=== PATIENT | female | born 1965 | race Caucasian/White ===

== ENCOUNTER → 2019-04-13 | Outpatient (CLI) | payer MEDICARE ==
[~2019-04-13] MED LIST: AMLO5 PO; ARIP10 PO; Ativan0.5 MG PO; CITA20 PO; CITALOPRAM PO; L-THEANINE; L-THEANINE25 GM PO; LITH300ER PO; LITHIUM CARB PO; Lithium Carbon450 MG PO; Lithium Carbonate PO; OLANZAPINE20 MG PO; OXYC5 PO; QUET300 PO; RISP2 PO; TRAZ150T57 PO; VENL75ER; Venlafaxine HC100 MG PO
[2019-04-13 17:32] LABS: Source, Urine Clean Catch
[2019-04-13 18:32] LABS: Bilirubin, Urine Neg (Neg); Blood, Urine Neg (Neg); Glucose Qualitative, Urine Neg (Neg); Ketones, Urine Neg (Neg); Leukocyte Esterase, Urine Neg (Neg); Nitrite, Urine Neg (Neg); Protein, Urine Neg (Neg); Urobilinogen, Urine NORM (Normal)
[2019-04-13 18:43] LABS: Appearance, Urine Clear (Clear); Color, Urine Yellow (P-Yellow)
== END | disposition home or self-care (01) ==
LOC: LAB SHORT 17:30 → OLS 17:30 → LAB FUT 04-13 17:00 → EDSTATUS 04-13 17:00
PROVIDERS: Registered Nurse
DX: Z13.220 Encounter for screening for lipoid disorders (principal); Z13.0 Encounter for screening for diseases of the blood and blood-forming organs and certain disorders involving the immune mechanism; I10 Essential (primary) hypertension; R61 Generalized hyperhidrosis; Z79.899 Other long term (current) drug therapy
CPT/HCPCS: 81003

== ENCOUNTER 2020-03-15 06:07 | Day surgery (SDC) | payer MEDICARE ==
[~2020-03-15] VITALS: Ht 172.7 cm; Wt 93.7 kg
[~2020-03-15 06:07] MED LIST changes: +Docusate Sodiu100 M1 PO; +NEBI5 PO; +NORVASC2.5 MG PO; +VITAMIN D310 MC4 PO
--- NOTE | 2020-03-15 06:51 | NUR ---
KNEE HIGH JESS HOSE AND CALF PAS APPLIED TO LLE.
--- NOTE | 2020-03-15 07:18 | NUR ---
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
--- NOTE | 2020-03-15 12:54 | NUR ---
PT ARRIVED TO UNIT FROM PACU AT APROX 1030. DRESSING TO L KNEE C/D/I, POLAR PACK IN PLACE. PT HAS SENSATION T/O LEG AND IS ABLE TO WIGGLE TOES, DENIES PAIN.
--- NOTE | 2020-03-15 17:58 | NUR ---
SHIFT SUMMARY PT POD 0 R TKA. SURGICAL DRESSING C/D/I. PAIN MANAGED WITH PO MEDICTATION. PT WORKED WITH THERAPY AND UP TO CHAIR. TOLERATING REGULAR DIET WITH NO N/V. VOIDING WITH NO DIFFICULTY. PLAN TO WORK WITH THERAPY AND DC HOME TOMORROW.
[2020-03-16 05:00] LABS: BASOPHILS ABSOLUTE AUTO 0.04 K/mm3 (0.00-0.23); BASOPHILS PERCENT AUTO 1 % (0-2); EOSINOPHILS PERCENT AUTO 0 % (0-6); Hematocrit 39.6 % (33.0-51.0); Hemoglobin 12.6 g/dL (11.5-16.0); IMMATURE GRAN ABSOLUTE AUTO 0.01 K/mm3 (0.00-0.10); IMMATURE GRAN PERCENT AUTO 0 % (0-1); LYMPHOCYTES ABSOLUTE AUTO 0.95 K/mm3 (0.84-5.20); LYMPHOCYTES PERCENT AUTO 13 % (21-46); MONOCYTES PERCENT AUTO 8 % (4-13); Mean Corpuscular HGB 30.6 pg (26.0-34.0); Mean Corpuscular HGB Conc 31.8 g/dL (31.5-36.5); Mean Corpuscular Volume 96 fL (80-100); Mean Platelet Volume 9.7 fL (9.1-12.4); NEUTROPHILS ABSOLUTE AUTO 5.81 K/mm3 (1.96-9.15); NEUTROPHILS PERCENT AUTO 79 % (41-73); Platelet Count 233 K/mm3 (150-400); RDW Coefficient Variation 12.7 % (11.7-14.2); RDW Standard Deviation 45.4 fL (35.1-46.3); Red Blood Cell Count 4.12 M/mm3 (3.80-5.20); White Blood Cell Count 7.41 K/mm3 (4.00-11.30)
--- NOTE | 2020-03-16 05:19 | NUR ---
SHIFT SUMMARY: PT POD #1 FOR RT TKA. AQUACEL AND CHUY WRAP C/D/I WITH POLAR PACK IN PLACE. PAIN BEING MANAGED WITH 5MG OXY AND SCHEDULED TORADOL AND TYLENOL. PT MEDICATED ONCE WITH 0.5MG DILAUDID IN BEGINNING OF SHIFT FOR BREAKTHROUGH PAIN. PT MINIMAL ASSIST TO BATHROOM WITH FWW+GB. AMBULATED HALLWAY TWICE THIS SHIFT. VOIDING AND HANG PO. PT DRESSED THIS MORNING AND SITTING IN CHAIR. PLAN FOR PHYSICAL THERAPY AND POSSIBLE DISCHARGE HOME.
[2020-03-16 05:23] LABS: Anion Gap 7 mmol/L (6-16); Blood Urea Nitrogen 11 mg/dL (8-24); Bun/Creatinine Ratio 14.3 (12.0-20.0); CO2, Blood 23 mmol/L (21-32); Calcium, Blood 9.2 mg/dL (8.5-10.1); Chloride, Blood 108 mmol/L (98-108); Creatinine, Blood 0.77 mg/dL (0.40-1.00); Glomerular Filtration Rate >60 (60-); Glucose, Blood 116 mg/dL (70-99); Potassium, Blood 3.9 mmol/L (3.5-5.5); Sodium, Blood 138 mmol/L (136-145)
[2020-03-16] MEDS ORDERED: Percocet 5-3251 EACH PO (08:45)
[2020-03-16] MEDS ORDERED: ASPI81CH PO (08:45)
--- NOTE | 2020-03-16 11:38 | NUR ---
[facility] PT AND SPOUSE PROVIDED WITH WRITTEN AND VERBAL DISCHARGE INSTRUCTIONS; THEY REPORTED UNDERSTANDING. PT APPEARED ANXIOUS WHEN SHE INITIALLY WAS GOING TO DISCHARGE. PT WAS OBSERVED FOR APPROXIMATELY AN ADDITIONAL HOUR BEFORE GOING HOME BECAUSE OF INCREASED ANXIETY AND ISSUES WITH PT'S WALKER. PT'S HAD INSTALLED SKIDS ON THE FRONT OF HER WALKER INSTEAD OF WHEELS, PT WAS HAVING DIFFICULTY USING IT R/T THIS ISSUE. PT'S WAS ABLE TO GO HOME AND EXCHANGE THE SKIDS FOR WHEELS. PT WAS ABLE TO SAFELY USE WALKER ONCE MODIFICATIONS HAD BEEN MADE. PT REPORTED HER PAIN WAS MANAGED. SHE VERBALIZED FEELING SAFE TO DISCHARGE HOME AND STATED SHE WANTED TO GO HOME. PT PROVIDED WITH DRESSINGS. PT AND SPOUSE REPORTED THEY HAD ALREADY AQUIRED PRESCRIPTIONS. PT ESCORTED OUT IN W/C AT APPROXIMATELY 1135.
== END 2020-03-16 11:44 | disposition home or self-care (01) ==
LOC: ORSCMMR 06:07 → ORD 07:30 → ORSCMMR 07:30 → SURS 10:38 → ORSCMMR 03-16 11:44 → SURS 03-16 11:44
PROVIDERS: Orthopaedic Surgery
PROC: 0SRC0JA Replacement of Right Knee Joint with Synthetic Substitute, Uncemented, Open Approach (ICD-10-PCS; principal; 2020-03-15 07:30)
PROC: 8E0Y0CZ Robotic Assisted Procedure of Lower Extremity, Open Approach (ICD-10-PCS; principal; 2020-03-15 07:30)
DX: M17.11 Unilateral primary osteoarthritis, right knee (principal); Z23 Encounter for immunization; I10 Essential (primary) hypertension; Z79.899 Other long term (current) drug therapy
CPT/HCPCS: 27447; S2900; 36415; 73560-RT; 80048; 85025; 88300; 97110; 97116; 97162; 97530; A9270; C1776; G0008; J0171; J0690; J0735; J1170; J1885; J2250; J2704; J2795; J7120; Q2038

== ENCOUNTER 2023-10-18 11:42 | Day surgery (SDC) | payer MEDICARE ==
[~2023-10-18] VITALS: Ht 170.2 cm; Wt 69.2 kg
[~2023-10-18 11:42] MED LIST changes: +ASPI81CH PO; +Lactated Ringer's 1,000 ML IV ONE; +Lidocaine HCl 2% 10 ML SDA ONE; +Percocet 5-3251 EACH PO; +Ropivacaine 0.5% HCL/PF 5 MG/ML 30ML Vial ONE
[2023-10-18] MEDS ORDERED: NS 50 ML IV ONE (12:02)
[2023-10-18] MEDS ORDERED: CeFAZolin Sodium 2,000 MG VIAL ONE (12:02)
[2023-10-18] MEDS ORDERED: Lactated Ringer's 1,000 ML IV ONE (12:09)
--- NOTE | 2023-10-18 12:09 | NUR ---
10/18/23 1209 Monica Solorio CALL LIGHT WITHIN REACH.
[2023-10-18] MEDS ORDERED: ESCI10 PO (12:14)
[2023-10-18] MEDS ORDERED: FentaNYL Citrate 50 MCG/ML 2 ML Injection ONE (13:49)
[2023-10-18] MEDS ORDERED: Midazolam HCl 1MG / ML 2ML Vial ONE (13:49)
[2023-10-18] MEDS ORDERED: propofoL 40 ML IV ONE (13:50)
--- NOTE | 2023-10-18 16:00 | NUR ---
10/18/23 1600 Alfred Londono PT ABLE TO VOID PRIOR TO D/C. SHE DENIED PAIN AND NAUSEA THROUGHOUT SDU STAY. SHE APPEARED ALERT AND RELAXED AT TIME OF D/C AND EXPRESSED SATSIFACTION WITH CARE.
[2023-10-18 16:05] VITALS: BP 113/72
== END 2023-10-18 15:37 | disposition home or self-care (01) ==
LOC: ORSCSDS 11:42
PROVIDERS: Podiatrist Foot & Ankle Surgery
PROC: 0L8V0ZZ Division of Right Foot Tendon, Open Approach (ICD-10-PCS; principal; 2023-10-18 13:00)
PROC: 0SNP0ZZ Release Right Toe Phalangeal Joint, Open Approach (ICD-10-PCS; principal; 2023-10-18 13:00)
DX: M20.41 Other hammer toe(s) (acquired), right foot (principal); E03.9 Hypothyroidism, unspecified; F32.A Depression, unspecified; Z79.899 Other long term (current) drug therapy
CPT/HCPCS: J0690; J2001; J2250; J2704; J2795; J3010; J7120

== ENCOUNTER 2024-03-27 10:30 | Day surgery (SDC) | payer MEDICARE ==
[~2024-03-27] VITALS: Ht 172.7 cm; Wt 73.1 kg
[~2024-03-27 10:30] MED LIST changes: +ESCI10 PO; -Lidocaine HCl 2% 10 ML SDA ONE; -Ropivacaine 0.5% HCL/PF 5 MG/ML 30ML Vial ONE
[2024-03-27] MEDS ORDERED: CeFAZolin Sodium 2,000 MG VIAL ONE (10:34)
[2024-03-27] MEDS ORDERED: ESCI20 PO (10:56)
[2024-03-27] MEDS ORDERED: CITALOPRAM HBR10 MG PO (10:56)
[2024-03-27] MEDS ORDERED: Lactated Ringer's 1,000 ML IV ONE (11:18)
[2024-03-27] MEDS ORDERED: Lidocaine HCl 2% 10 ML SDA ONE (11:42)
[2024-03-27] MEDS ORDERED: EPINEPhrine HCl 1 MG/ML 1ML Amp ONE (11:42)
[2024-03-27] MEDS ORDERED: Midazolam HCl 1MG / ML 2ML Vial ONE (12:01)
[2024-03-27] MEDS ORDERED: propofoL 20 ML IV ONE (12:01)
[2024-03-27] MEDS ORDERED: FentaNYL Citrate 50 MCG/ML 2 ML Injection ONE (12:02)
[2024-03-27] MEDS ORDERED: Bupivacaine 0.5% W/EPI 1:200000 SDV 10ML INJ ONE (12:27)
[2024-03-27 12:39] VITALS: BP 99/68
--- NOTE | 2024-03-27 13:25 | NUR ---
03/27/24 6979 Patricia Aguilar D/C INSTRUCTIONS GIVEN TO PT & PT'S SPOUSE. QUESTIONS ANSWERED & UNDERSTANDING VERBALIZED. VERIFIED W/ DR. MORENO REGARDING POST-OP SHOE. DR. MORENO STATES PT CAN HAVE POST-OP SHOE FOR TRANSPORT HOME & TO USE WHEN AMBULATING. ALL PT BELONGINGS RETURNED TO PT. STEADY GAIT NOTED UPON TRANSFER FROM TO VEHICLE. NO VISIBLE SIGNS OF DISTRESS NOTED.
== END 2024-03-27 13:22 | disposition home or self-care (01) ==
LOC: ORSCSDS 10:30
PROVIDERS: Podiatrist Foot & Ankle Surgery
PROC: 0Y6V0Z1 Detachment at Right 4th Toe, High, Open Approach (ICD-10-PCS; principal; 2024-03-27 12:00)
DX: M79.89 Other specified soft tissue disorders (principal); M79.674 Pain in right toe(s); E78.5 Hyperlipidemia, unspecified; F31.9 Bipolar disorder, unspecified; Z79.899 Other long term (current) drug therapy
CPT/HCPCS: 88305; 88311; J0171; J0690; J2003; J2250; J2704; J3010; J7120